=== PATIENT | female | born 1970 | race Caucasian/White ===

== ENCOUNTER 2020-10-23 12:00 | Outpatient (CLI) | payer MEDICARE, SELFPAY ==
--- NOTE | ~2020-10-23 | XR_ITS ---
EXAMINATION: XR abdomen/kub 1V EXAM DATE: 10/23/2020 12:21 INDICATION: Gross hematuria x three weeks. TECHNIQUE: Frontal projection(s) of the abdomen for interpretation. There is no prior study for santino taylor. FINDINGS: There is moderate amount of colonic stool and gas. No small bowel dilation, nonobstructiv e bowel gas pattern. Calcifications in the pelvis are believed to be phleboliths. There is no orga nomegaly suspected. The bones are unremarkable. There is no free intraperitoneal air. The lung b ases are clear. IMPRESSION: Unremarkable abdomen x-ray exam. Reviewed, dictated and finalized at location A.
== END 2020-10-23 12:01 | disposition home or self-care (01) ==
LOC: ANHIMG 12:10
PROVIDERS: PCP Family Medicine; Visit Provider Nurse Practitioner Adult Health
DX: R31.0 Gross hematuria (principal)
CPT/HCPCS: 74018